=== PATIENT | male | born 2000 | race African-American/Black ===

== ENCOUNTER 2023-09-12 13:23 | Emergency (ER) | payer OTHER ==
[2023-09-12 14:27] LABS: SARS-CoV-2 Antigen CONTROL BLUE LINE VIS/BG OK; SARS-CoV-2 Antigen Rapid Res Negative (Negative)
--- NOTE | 2023-09-12 14:56 | ER ---
Nurse's Notes [facility] Name: Maya Wharton Age: 23 yrs Sex: Male : 2000 Arrival Date: 09/12/2023 Time: 13:23 Bed 10 Private MD: Diagnosis: Viral infection, unspecified;Encounter for screening for infections with a predominantly sexual mode of transmission Presentation: 09/11 13:36 Chief complaint: Patient states: COUGH, SORE THROAT, RUNNY NOSE AND CONGESTION STARTED db YESTERDAY AND WORSE TODAY. Coronavirus screen: Client denies travel out of the [place] in the last 14 days. At this time, the client does not indicate any symptoms associated with coronavirus-19. Ebola Screen: Patient negative for fever greater than or equal to 101.5 degrees Fahrenheit, and additional compatible Ebola Virus Disease symptoms Patient denies exposure to infectious person. Patient denies travel to an Ebola-affected area in the 21 days before illness onset. No symptoms or risks identified at this time. Initial Sepsis Screen: Does the patient meet any 2 criteria? No. Patient's initial sepsis screen is negative. Does the patient have a suspected source of infection? No. Patient's initial sepsis screen is negative. Risk Assessment: Do you want to hurt yourself or someone else? Patient reports no desire to harm self or others. Onset of symptoms was September 11, 2023. 13:36 Method Of Arrival: Ambulatory db 13:36 Acuity: BRISA 4 db Triage Assessment: 13:39 General: Appears in no apparent distress. comfortable, Behavior is calm, cooperative. db Pain: Complains of pain in head. Neuro: Level of Consciousness is awake, alert, obeys commands, Oriented to person, place, time, situation. Respiratory: Reports cough that is Airway is patent Respiratory effort is even, unlabored, Respiratory pattern is regular, symmetrical. Historical: - Allergies: 13:38 No Known Allergies; db - Home Meds: 13:38 None [Active]; db - PMHx: 13:38 None; db - Immunization history:: Adult Immunizations unknown. - Infectious Disease History:: Denies. - Social history:: Smoking status: Patient denies any tobacco usage or history of. Screenin:34 [facility] ED Fall Risk Assessment (Adult) History of falling in the last 3 months, tl4 including since admission No falls in past 3 months (0 pts) Confusion or Disorientation No (0 pts) Intoxicated or Sedated No (0 pts) Impaired Gait No (0 pts) Mobility Assist Device Used No (0 pt) Altered Elimination No (0 pt) Score/Fall Risk Level 0 - 2 = Low Risk Oriented to surroundings, Maintained a safe environment, Educated pt \T\ family on fall prevention, incl call for assistance when getting out of bed, Assessed \T\ reinforced patient's understanding of fall precautions. Abuse screen: Denies threats or abuse. Denies injuries from another. Nutritional screening: No deficits noted. Tuberculosis screening: No symptoms or risk factors identified. Assessment: 14:08 General: Appears in no apparent distress. Behavior is calm, cooperative. Pain: tl4 Complains of pain in head. Neuro: Level of Consciousness is awake, alert, obeys commands, Oriented to person, place, time, situation, Moves all extremities. Full function Gait is steady, Speech is normal. Cardiovascular: Capillary refill < 3 seconds Patient's skin is warm and dry. Respiratory: Airway is patent Respiratory effort is even, unlabored, Respiratory pattern is regular, symmetrical, Breath sounds are clear bilaterally. Respiratory: Reports cough that is non-productive. GI: No signs and/or symptoms were reported involving the gastrointestinal system. : No signs and/or symptoms were reported regarding the genitourinary system. EENT: Nares with drainage noted. Derm: No signs and/or symptoms reported regarding the dermatologic system. Musculoskeletal: No signs and/or symptoms reported regarding the musculoskeletal system. Vital Signs: 13:36 BP 116 / 68; Pulse 86; Resp 16; Temp 98.5(O); Pulse Ox 96% ; Weight 58.97 kg; Height 5 db ft. 8 in. ; 13:36 Body Mass Index 19.77 (58.97 kg, 172.72 cm) db ED Course: 13:35 Patient arrived in ED. ra3 13:35 Ernesto Dumont MD is Attending Physician. ec2 13:38 Triage completed. db 13:39 Arm band placed on right wrist. db 14:32 Roger Santos RN is Primary Nurse. tl4 14:34 Patient has correct armband on for positive identification. Bed in low position. Call tl4 light in reach. Side rails up X 1. Provided Education on: ed process, call doran. Client placed on continuous cardiac and pulse oximetry monitoring. NIBP monitoring applied. Door closed. Noise minimized. Moved to private room. Warm blanket given. Pillow given. 14:35 No provider procedures requiring assistance completed. Patient did not have IV access tl4 during this emergency room visit. 14:52 CXR XRAY In Process Unspecified. EDMS Administered Medications: No medications were administered Medication: 14:34 VIS not applicable for this client. tl4 Outcome: 14:55 Discharge ordered by . ec2 15:10 Discharged to home ambulatory, ap3 15:10 Condition: good 15:10 Discharge instructions given to patient, Instructed on discharge instructions, follow up and referral plans. Demonstrated understanding of instructions, follow-up care, 15:10 Patient left the ED. ap3 Signatures: Dispatcher [employer] Gifty Dorsey, RN RN ap3 Ximena Huddleston, RN RN Ernesto Briseno MD MD ec2 Roger Santos RN RN tl4 Jaymie Mccormick 3
--- NOTE | 2023-09-12 14:56 | EDPHYS ---
Physician Documentation [facility] Name: Maya Wharton Age: 23 yrs Sex: Male : 2000 Arrival Date: 09/12/2023 Time: 13:23 Bed 10 Private MD: ED Physician Ernesto Dumont HPI: 09/11 13:53 This 23 yrs old Black Male presents to ER via Ambulatory with complaints of Cold ec2 Symptoms, Cough, Headache, Runny Nose. 13:53 Patient arrives today for evaluation of cough and cold symptoms. Patient reports that ec2 he has been experiencing cough and cold symptoms along for several days, he is having congestion. Is here for work excuse. Patient also with no difficulty breathing, no vomiting, no diarrhea. Also expresses concern regarding STI, no penile discharge, does not want empiric therapy.. Historical: - Allergies: 13:38 No Known Allergies; db - Home Meds: 13:38 None [Active]; db - PMHx: 13:38 None; db - Immunization history:: Adult Immunizations unknown. - Infectious Disease History:: Denies. - Social history:: Smoking status: Patient denies any tobacco usage or history of. ROS: 13:53 Constitutional: as per hpi ec2 Exam: 13:53 Constitutional: GEN: NAD Head: atraumatic Eyes: EOMI Ears: External ears are ec2 normal. CV: regular rate LUNGS: no respiratory distress, no wheezes, rales, or rhonchi ABD: non-distended SKIN: no evidence of rashes MSK: no evidence of trauma NEURO: moves all extremities equally Vital Signs: 13:36 BP 116 / 68; Pulse 86; Resp 16; Temp 98.5(O); Pulse Ox 96% ; Weight 58.97 kg; Height 5 db ft. 8 in. ; 13:36 Body Mass Index 19.77 (58.97 kg, 172.72 cm) db MDM: 13:38 Patient medically screened. ec2 13:53 Data reviewed: vital signs. ED course: Patient arrives today for evaluation of cough ec2 and cold symptoms. Examination remarkable for congestion dividual was otherwise in no acute distress with a reassuring examination and reassuring cardiopulmonary examination. Will obtain viral swab, chest x-ray. Additionally per patient request will send GC/chlamydia, patient does not want empiric therapy for STI.. 14:51 ED course: Chest x-ray independently reviewed and interpreted by me, shows no acute ec2 intrathoracic process. . 14:55 ED course: Flu and COVID testing negative. Will discharge home, provide work note and ec2 patient will defer empiric therapy at this time. . 09/11 13:36 Order name: Influenza Screen (a \T\ B); Complete Time: 14:55 ec2 09/11 13:36 Order name: SARS RAPID; Complete Time: 14:55 ec2 09/11 14:01 Order name: GC (Mayank/Chl) Probe URINE ec2 09/11 13:38 Order name: CXR XRAY ec2 Administered Medications: No medications were administered Disposition Summary: 09/12/23 14:55 Discharge Ordered Notes: Location: Home ec2 Condition: Stable ec2 Diagnosis - Viral infection, unspecified ec2 - Encounter for screening for infections with a predominantly sexual mode of ec2 transmission Followup: ec2 - With: Private Physician - When: - Reason: Re-evaluation by your physician Discharge Instructions: - Discharge Summary Sheet ec2 - Viral Illness, Adult ec2 - Preventing Sexually Transmitted Infections, Adult ec2 Forms: - Work release form ec2 - Medication Reconciliation Form ec2 - Antibiotic Education ec2 - Prescription Opioid Use ec2 - Patient Portal Instructions ec2 - Leadership Thank You Letter ec2 Signatures: Dispatcher [employer] Ximena Da Silva, RN RN Ernesto Briseno MD MD ec2 Corrections: (The following items were deleted from the chart) 13:36 13:36 Influenza Screen (A \T\ B)+BA.LAB.BRZ ordered. EDMS EDMS 13:36 13:36 SARS-COV-2 Antigen Rapid+I.LAB.BRZ ordered. EDMS EDMS
--- NOTE | 2023-09-12 15:12 | RAD REPORT ---
EXAM DESCRIPTION: Jocelynn Single View09/12/2023 2:50 pm CLINICAL HISTORY: cough COMPARISON: 2007 FINDINGS: The lungs appear clear of acute infiltrate. The heart is normal size IMPRESSION: No acute abnormalities displayed
[2023-09-12 15:20] VITALS: BP 116/68; TEMP 98.5; O2SAT 96
== END 2023-09-12 15:10 | disposition home or self-care (01) ==
LOC: ER 13:23
DX: B34.9 Viral infection, unspecified (principal); Z11.52 Encounter for screening for COVID-19; Z11.3 Encounter for screening for infections with a predominantly sexual mode of transmission
CPT/HCPCS: 36415; 71045; 87490; 87590; 87804; 87811

== ENCOUNTER 2024-10-19 15:44 | Emergency (ER) | payer OTHER, SELFPAY ==
--- OUTSIDE RECORDS SUMMARY | 2024-10-19 15:47 | XMS REPORT | Continuity of Care Document ---
Author Name Unknown Address [address] [place] [address] [facility] Address [address] [place] [address] Care Team Providers Care Ad Operations Coordinator Name Role Phone Unavailable Unavailable Unavailable Payers Payer Name Policy Type Policy Number Effective Date Expirati on Date Source Allergies, Adverse Reactions, Alerts Allergy Name Allergy Type Status Severity Reaction(s) Onset Date Inactive Date Treating Clinician Comments Source No Known Allergie s DA Active U 00:00: 00 [facility] No Known Allergie s DA Active U 00:00: 00 [facility] Encounters Start Date/Time End Date/Time Encounter Type Admission Type Attending [facility] Care Facility Care Department Encounter ID Source 2019-05-11 02:07:00 Inpatient [facility] KIRAN [id number] [facility] Notes Date/Time Note Provider Source 2019-05-11 02:16:00 [facility] ([facility]) EMERGENCY PROVIDER REPORT REPORT#:[id number] REPORT STATUS: Signed DATE:05/11/19 TIME:215 PATIENT: SILVESTRE FIGUEROA UNIT #: [id number] ROOM/BED: : 00 AGE: 19 SEX: M PCP PHYS: No Primary or Family Physician SERVICE AUTHOR: Bindu San MD * ALL edits or amendments must be made on the electronic/computer document * HPI-Hand Prob/Inj General Confirmed Patient Yes Patient Type New patient Initial Greet Date/Time 05/11/19 021 Presentation Chief Complaint Finger injury R (laceration) Hx Obtained From Patient Onset Occurred Today Symptom Duration Since onset Progression since Onset Unchanged Severity: Onset Moderate Severity: Current Moderate Associated with Denies: Cold extremity, Numbness, Swollen extremity, Weakness. Associated Other Pt denies other symptoms Exacerbated by Nothing Relieved by Nothing Context Immunization Status General Unknown Free Text HPI Notes Free Text HPI Notes 19 yo gentleman w/ no sig PMH presents to ED for CC of R 5th finger laceration x today. Pt reports he accidently cut himself w/ glass. No associated sxs are reported. Denies cold/swollen extremity, numbness and weakness. Portions of this section were scribed by Laverne Berg on 05/11/19 at 0409 Review of Systems ROS Statements All systems rev neg except as marked. Focused Review of Systems Skin Reports: Laceration. Free Text ROS Notes Free Text ROS Notes -Constitutional Denies: Fever. Chills. -GI Denies: Nausea, Vomiting. Abdominal pain. Diarrhea constipation - Denies: Dysuria, Hematuria, -Musculoskeletal Denies: Extremity pain, Ext Swelling -Skin Denies: Rash, Swelling. -Neurologic Denies: Numbness, Tingling. -Eyes Denies:visual loss, blurred vision -Respiratory Denies: Shortness of breath. dyspnea on exertion -Cardiovascular Denies: Chest pain, Dyspnea on exertion, Edema. -Allergy: Denies Hives, Itching Portions of this section were scribed by Laverne Berg on 05/11/19 at 0409 Past Medical History - Adult Stated Complaint RIGHT HAND, PINKY LACERATION Allergies Coded Allergies: No Known Allergies (05/11/19) Review of Nursing Notes Rev avail, and agree Pt reports no significant: Past medical history, Past surgical history Ambulatory Status Independent Portions of this section were scribed by Laverne Berg on 05/11/19 at 0409 Physical Exam Vital Signs Vital Signs First Documented: Result Date Time Pulse Ox 98 216 B/P 111/75 216 B/P Mean 87 216 O2 Delivery Room air 216 Temp 36.4 216 Pulse 97 216 Resp 18 216 Last Documented: Result Date Time Pulse Ox 98 216 B/P 111/75 216 B/P Mean 87 216 O2 Delivery Room air 216 Temp 36.4 216 Pulse 97 216 Resp 18 216 Review of Vital Signs Reviewed Focused PE MS Wrist/Hand Text/Dict Note avulsion to R 5th finger Free Text PE Notes Free Text PE Notes General/Const General/Const Awake, Alert MS Head Head Atraumatic, Normocephalic Eyes Eyes Atraumatic, No scleral icterus MS Neck Neck Atraumatic, No meningismus, Full range of motion neck easily mobile Resp/Chest no labored bs, no audible wheezing Cardiovascular Cardiovascular no cyanosis, Ext: moving all 4 ext, no swelling/ cyanosis noted on UE Bl Skin Skin no apparent rashes, Dry Neurologic Neurologic Oriented X3, Speech NL, Gait NL ENT Atraumatic, Airway patent, Mucous membranes moist, Ext aud canal NL, Gums/ dentition NL Portions of this section were scribed by Laverne Berg on 05/11/19 at 0409 Interpretation Diagnostics Point of Care Testing Pulse Oximetry Pulse Ox % 98 On: Room air Interpretation Interpreted by me, Pulse oximetry normal Time 7 Portions of this section were scribed by Laverne Berg on 05/11/19 at 0409 Procedures Free Text Proc Notes Free Text Proc Notes laceration unable to suture given large gap of avulsion Portions of this section were scribed by Laverne Berg on 05/11/19 at 0302 Re-Evaluation MDM Free Text MDM Notes Free Text MDM Notes 19 yo gentleman HPI and PE as above VSS 1. Laceration management 2. Reassess Instructed to call for f/u appointment with PCP and return to the ED for new or worsening symptoms ED Course Medication(s) Ordered Medication(s) Ordered: Cardiovascular Drugs Sig/Dominick Start time Last Medication Dose Route Stop Time Status Admin Lidocaine HCl 20 ML STAT STA 4 DC LOCAL 214 0326 Serums, Toxoids, And Vaccines Sig/Dominick Start time Last Medication Dose Route Stop Time Status Admin Tetanus/Diphtheria 0.5 ML X1ED STA 0300 DC Toxoids IM 0301 0322 Portions of this section were scribed by Laverne Berg on 05/11/19 at 0409 Patient Discharge Departure Vital Signs/Condition Vital Signs First Documented: Result Date Time Pulse Ox 98 216 B/P 111/75 216 B/P Mean 87 021 O2 Delivery Room air 216 Temp 36.4 216 Pulse 97 216 Resp 18 216 Last Documented: Result Date Time Pulse Ox 98 021 B/P 111/75 021 B/P Mean 87 216 O2 Delivery Room air 216 Temp 36.4 021 Pulse 97 216 Resp 18 216 All vital signs available at the time of this entry have been reviewed. Condition Stable Clinical Impression Clinical Impression Primary Impression: Laceration Disposition Decision Discharge )( Discharged to Home Yes )( Time 0302 )( Date 05/11/19 Discharge/Care Plan Counseled Regarding Diagnosis, Need for follow-up, When to return to ED Discharge Note I have spoken with the patient and/or caregivers. I have explained the patient's condition, diagnoses and treatment plan based on the information available to me at this time. I have answered the patient's and/or caregiver's questions and addressed any concerns. The patient and/or caregivers have as good an understanding of the patient's diagnosis, condition and treatment plan as can be expected at this point. The vital signs have been stable. The patient's condition is stable and appropriate for discharge from the emergency department. The patient will pursue further outpatient evaluation with the primary care physician or other designated or consulting physician as outlined in the discharge instructions. The patient and/or caregivers are agreeable to this plan of care and follow-up instructions have been explained in detail. The patient and/or caregivers have received these instructions in written format and have expressed an understanding of the discharge instructions. The patient and/or caregivers are aware that any significant change in condition or worsening of symptoms should prompt an immediate return to this or the closest emergency department or a call to 911. Supervising Physician Note Scribe Statement Laverne Berg, 05/11/19 0216, scribing for and in the presence of [Dr. San]. Signed By: Laverne Berg, 05/11/19 0216 Provider Scribed Statement I personally performed the services described in this documentation and reviewed the documentation that was dictated to the scribe(s) in my presence, and it accurately records my words and actions. Bindu San, 05/11/19 Portions of this section were scribed by Laverne Berg on 05/11/19 at 0409 at 0440 RPT #: [id number] END OF REPORT HCAPM
[2024-10-19 16:35] LABS: SARS-CoV-2 Antigen Rapid Res Negative (Negative)
--- NOTE | 2024-10-19 16:45 | ER ---
Nurse's Notes [facility] Name: Maya Wharton Age: 24 yrs Sex: Male : 2000 Arrival Date: 10/19/2024 Time: 15:44 Bed IW1 Private MD: Diagnosis: Other malaise Presentation: 10/19 15:54 Chief complaint: Patient states: Sore throat started this AM. Coronavirus screen: ll1 Client denies travel out of the [place] in the last 14 days. At this time, the client does not indicate any symptoms associated with coronavirus-19. Ebola Screen: Patient denies travel to an Ebola-affected area in the 21 days before illness onset. 15:54 Method Of Arrival: Ambulatory ll1 15:56 Initial Sepsis Screen: Does the patient meet any 2 criteria? No. Patient's initial ll1 sepsis screen is negative. Does the patient have a suspected source of infection? No. Patient's initial sepsis screen is negative. Risk Assessment: Do you want to hurt yourself or someone else? Patient reports no desire to harm self or others. Onset of symptoms was October 19, 2024. 15:56 Acuity: BRISA 4 ll1 Triage Assessment: 15:54 General: Appears uncomfortable, Behavior is calm, cooperative, appropriate for age. ll1 Pain: Complains of pain in throat Pain currently is 1 out of 10 on a pain scale. Quality of pain is described as aching. EENT: Reports pain when swallowing. Respiratory: Breath sounds are clear bilaterally. Historical: - Allergies: 15:54 No Known Allergies; ll1 - PMHx: 15:54 None; ll1 - Immunization history:: Adult Immunizations up to date. - Infectious Disease History:: Denies. - Social history:: Smoking status: Patient denies any tobacco usage or history of. Screenin:47 [facility] ED Fall Risk Assessment (Adult) History of falling in the last 3 months, ll1 including since admission No falls in past 3 months (0 pts) Confusion or Disorientation No (0 pts) Intoxicated or Sedated No (0 pts) Impaired Gait No (0 pts) Mobility Assist Device Used No (0 pt) Altered Elimination No (0 pt) Score/Fall Risk Level 0 - 2 = Low Risk Maintained a safe environment, Hourly rounding (assess needs \T\ fall precautionary measures) done. Abuse screen: Denies threats or abuse. Nutritional screening: No deficits noted. Tuberculosis screening: No symptoms or risk factors identified. Assessment: 16:47 Reassessment: No changes from previously documented assessment. Patient and/or family ll1 updated on plan of care and expected duration. Pain level reassessed. Patient is alert, oriented x 3, equal unlabored respirations, skin warm/dry/pink. 16:47 Cardiovascular: Capillary refill < 3 seconds Patient's skin is warm and dry. ll1 16:47 Respiratory: Airway is patent. ll1 Vital Signs: 15:54 BP 124 / 85; Pulse 80; Resp 17; Temp 98.1; Pulse Ox 97% ; Weight 58.97 kg; Height 5 ft. ll1 8 in. ; Pain 0/10; 15:54 Body Mass Index 19.77 (58.97 kg, 172.72 cm) ll1 15:54 Pain Scale: Adult 1 ED Course: 15:52 Patient arrived in ED. gl 15:52 Citlaly Marti [facility]C [facility]. kb 15:52 Jing Ramirez is Attending Physician. kb 15:54 Arm band placed on. ll1 15:55 Patient has correct armband on for positive identification. Bed in low position. 1 Provided Education on: ER procedures and process. 15:56 Triage completed. ll1 15:59 SARS-COV-2 Antigen Rapid Sent. ll1 16:05 SARS-COV-2 Antigen Rapid Sent. ll1 16:05 Group A Streptococcus Rapid Sent. ll1 16:47 No provider procedures requiring assistance completed. Patient did not have IV access ll1 during this emergency room visit. Administered Medications: No medications were administered Medication: 17:12 VIS not applicable for this client. ll1 Outcome: 16:44 Discharge ordered by . kb 16:47 Patient left the ED. ll1 16:47 Discharged to home ambulatory, ll1 16:47 Condition: stable 16:47 Discharge instructions given to patient, Instructed on discharge instructions, follow up and referral plans. Demonstrated understanding of instructions, follow-up care, Signatures: Citlaly Marti FNP-C FNP-Ckb Lewis, Lynsay, RN RN ll1 Susie Burks, Reg Reg gl Corrections: (The following items were deleted from the chart) 15:54 15:54 PMHx: Unable to Obtain; ll1 ll1 15:56 15:54 Pulse 80bpm; Resp 17bpm; Pulse Ox 97%; Temp 98.1F; 58.97 kg; Height 5 ft. 8 in.; ll1 BMI: 19.7; Pain 0/10, Adult; ll1
--- NOTE | 2024-10-19 16:45 | EDPHYS ---
Physician Documentation [facility] Name: Maya Wharton Age: 24 yrs Sex: Male : 2000 Arrival Date: 10/19/2024 Time: 15:44 Bed IW1 Private MD: ED Physician Jing Ramirez HPI: 10/19 16:06 This 24 yrs old Black Male presents to ER via Ambulatory with complaints of Congestion, kb Sore Throat. 16:06 Patient is a 24-year-old male who presents for sore throat morning. Patient states " I kb woke up with a sore throat and not feeling well so I called into work. I desponded make sure I am good before I go back." Reports coworker was recently ill. Denies cough, congestion, fever, n/v/d. . Historical: - Allergies: 15:54 No Known Allergies; ll1 - PMHx: 15:54 None; ll1 - Immunization history:: Adult Immunizations up to date. - Infectious Disease History:: Denies. - Social history:: Smoking status: Patient denies any tobacco usage or history of. ROS: 16:07 Constitutional: As per HPI kb Exam: 16:08 Constitutional: This is a well developed, well nourished patient who is awake, alert, kb and in no acute distress. Head/Face: Normocephalic, atraumatic. ENT: Moist Mucous membranes Cardiovascular: Regular rate Respiratory: Respirations even and unlabored. No increased work of breathing. Talking in full sentences Abdomen/GI: Soft, non-tender. No distention Skin: Warm, dry with normal turgor. Normal color. MS/ Extremity: Pulses equal, no cyanosis. Neurovascular intact. Full, normal range of motion. Neuro: Awake and alert, GCS 15, oriented to person, place, time, and situation. Vital Signs: 15:54 BP 124 / 85; Pulse 80; Resp 17; Temp 98.1; Pulse Ox 97% ; Weight 58.97 kg; Height 5 ft. ll1 8 in. ; Pain 0/10; 15:54 Body Mass Index 19.77 (58.97 kg, 172.72 cm) ll1 15:54 Pain Scale: Adult ll1 MDM: 15:52 Medical Screening Exam initiated kb 16:09 Differential diagnosis: flu, covid, strep, pharyngitis. Data reviewed: vital signs, nurses notes. 16:43 I considered the following discharge prescriptions or medication management in the emergency department I discussed and recommended Over The Counter medications, Antibiotics: At this time antibiotics are not recommended. Counseling: I had a detailed discussion with the patient and/or guardian regarding the historical points, exam findings, and any diagnostic results supporting the discharge/admit diagnosis, lab results, the need for outpatient follow up, a family practitioner, to return to the emergency department if symptoms worsen or persist or if there are any questions or concerns that arise at home. 10/19 15:55 Order name: Group A Streptococcus Rapid; Complete Time: 16:32 kb 10/19 15:55 Order name: SARS-COV-2 Antigen Rapid; Complete Time: 16:43 kb 10/19 16:34 Order name: Throat Culture EDMS Administered Medications: No medications were administered Disposition: 17:15 Co-signature as Attending Physician, Jing Ramirez I agree with the assessment ci and plan of care. I reviewed the patient's care provided by the Advanced Practice Provider and agree with the diagnosis and treatment plan. Disposition Summary: 10/19/24 16:44 Discharge Ordered Notes: Location: Home Condition: Stable kb Diagnosis - Other malaise kb Followup: kb - With: Emergency Department - When: As needed - Reason: Worsening of condition Followup: kb - With: Private Physician - When: 2 - 3 days - Reason: Recheck today's complaints, Continuance of care, Re-evaluation by your physician Discharge Instructions: - Sore Throat, [id number] kb - Discharge Summary Sheet ll1 Forms: - Medication Reconciliation Form kb - Antibiotic Education kb - Prescription Opioid Use kb - Patient Portal Instructions kb - Leadership Thank You Letter - Work release form ll1 Signatures: Dispatcher [employer] Citlaly Landry FNP-C FNP-Fabiola Arndt RN RN 1 Jing Ramirez Corrections: (The following items were deleted from the chart) 15:54 15:54 PMHx: Unable to Obtain; ll1 ll1
[2024-10-19 16:52] VITALS: BP 124/85; TEMP 98.1; O2SAT 97
== END 2024-10-19 16:47 | disposition home or self-care (01) ==
LOC: ER 15:44
DX: R07.0 Pain in throat (principal); R53.81 Other malaise; Z11.52 Encounter for screening for COVID-19
CPT/HCPCS: 36415; 87070; 87426; 99283